=== PATIENT | male | born 1990 | race Two or more races ===

== ENCOUNTER 2017-03-11 10:32 | Inpatient (IN) | payer OTHER ==
[2017-03-11 11:30] VITALS: BMI 25.0
--- NOTE | 2017-03-11 14:06 | HP ---
CIWA Score - CIWA Score Nausea/Vomitin-Int. Nausea w/Dry Heave Muscle Tremors: 4-Moderate,w/Arms Extend Anxiety: 4-Mod. Anxious/Guarded Agitation: 3 Paroxysmal Sweats: 1-Minimal Palms Moist Orientation: 0-Oriented Tacttile Disturbances: 2-Mild Itch/Numbness/Burn Auditory Disturbances: 0-None Visual Disturbances: 0-None Headache: 1-Very Mild CIWA-Ar Total Score: 19 Admission ROS BHS - HPI Chief Complaint: DETOX TX FOR ALCOHOL DEPENDENCE Allergies/Adverse Reactions: Allergies Allergy/AdvReac Type Severity Reaction Status Date / Time No Known Allergies Allergy Verified 03/11/17 11:56 History of Present Illness: 27 Y/O H/M WITH A HX OF ALCOHOL, COCAINE, PCP AND HEROIN DEPENDENCE SEEKING DETOX TX. TOXICOLOGY NEGATIVE FOR OPIOIDS AND PCP. Exam Limitations: No Limitations - Ebola screening Have you traveled outside of the country in the last 21 days: No Have you had contact with anyone from an Ebola affected area: No Have you been sick,other than usual withdrawal symptoms: No Do you have a fever: No - Review of Systems Constitutional: Chills, Night Sweats EENT: reports: Tearing, Nose Congestion, Dental Problems Respiratory: reports: No Symptoms reported Cardiac: reports: No Symptoms Reported GI: reports: Constipated, Diarrhea : reports: No Symptoms Reported Musculoskeletal: reports: Muscle Pain ("WHEN I SHOOT UP I GET MUSCLE CRAMPS".) Integumentary: reports: No Symptoms Reported Neuro: reports: Headache, Tremors, Unsteady Gait Endocrine: reports: No Symptoms Reported Hematology: reports: No Symptoms Reported Psychiatric: reports: Orientated x3, Anxious, Depressed (HX SCHIZOAFFECTIVE DISORDER. ON MED.) Other Systems: Reviewed and Negative Patient History - Patient Medical History Hx Anemia: No Hx Asthma: No Hx Chronic Obstructive Pulmonary Disease (COPD): No Hx Cardiac Disorders: No Hx Hypertension: No Hx Hypercholesterolemia: No HX Cerebrovascular Accident: No Hx Seizures: No Hx Diabetes: No Hx Gastrointestinal Disorders: No Hx Genitourinary Disorders: No Hx Sexually Transmitted Disorders: No Hx Renal Disease (ESRD): No Hx Thyroid Disease: No Hx Human Immunodeficiency Virus (HIV): Yes (SINCE 2011; NONCOMPLIANT WITH MEDS; "MISSED FEW DAYS".) Hx Hepatitis C: Yes Hx Depression: Yes Hx Suicide Attempt: No (DENIES) Hx Schizophrenia: No - Patient Surgical History Past Surgical History: No Hx Neurologic Surgery: No Hx Cataract Extraction: No Hx Cardiac Surgery: No Hx Lung Surgery: No Hx Breast Surgery: No Hx Breast Biopsy: No Hx Abdominal Surgery: No Hx Appendectomy: No Hx Cholecystectomy: No Hx Genitourinary Surgery: No Hx Orthopedic Surgery: No Anesthesia Reaction: No - PPD History Previous Implant?: Yes Documented Results: Negative w/o proof Implanted On Prior [facility] Admission?: No PPD to be Administered?: Yes - Reproductive History Patient is a Female of Child Bearing Age (11 -55 yrs old): No (MALE) Patient : (N/A) - Smoking Cessation Smoking history: Current every day smoker Have you smoked in the past 12 months: Yes Aproximately how many cigarettes per day: 20 Hx Chewing Tobacco Use: No Initiated information on smoking cessation: Yes 'Breaking Loose' booklet given: 03/11/17 - Substance & Tx. History Hx Alcohol Use: Yes (BEER/VODKA) Hx Substance Use: Yes (CRACK/COCIANE/CRYSTAL METH) Substance Use Type: Alcohol, Cocaine Hx Substance Use Treatment: Yes (DON'T REMEMBER NAME OF LAST TX.) - Substances Abused Alcohol Route: Oral Frequency: Daily Amount used: 4-5 24 oz beers Age of first use: 18 Date of Last Use: 03/10/17 Crack Route: Smoking Frequency: Daily Amount used: $40 Age of first use: 20 Date of Last Use: 03/10/17 crystal meth Route: Smoking Frequency: 1-2 times per week Amount used: $800 Age of first use: 22 Date of Last Use: 03/06/17 Family Disease History - Family Disease History Family History: Unable to Obtain ("[facility]") Admission Physical Exam BHS - Vital Signs Vital Signs: Vital Signs - 24 hr 03/11/17 11:18 Temperature 97.3 F L Pulse Rate 72 Respiratory 19 Rate Blood Pressure 125/74 - Physical General Appearance: Yes: Moderate Distress, Irritable, Anxious HEENTM: Yes: EOMI, Normocephalic, BENJAMÍN, Pharynx Normal Respiratory: Yes: Chest Non-Tender, Lungs Clear, Normal Breath Sounds, No Respiratory Distress Neck: Yes: No masses,lesions,Nodules, Supple, Trachea in good position Breast: Yes: Breast Exam Deferred Cardiology: Yes: Regular Rhythm, Regular Rate, S1, S2 Abdominal: Yes: Normal Bowel Sounds, Non Tender, Soft Genitourinary: Yes: Other (N/C) Back: Yes: Other (GENERALIZED POSTULAR RASH,) Musculoskeletal: Yes: full range of Motion, Gait Steady Extremities: Yes: Normal Range of Motion, Non-Tender Neurological: Yes: flatwork finisher II-XII NML intact, Fully Oriented, Alert, Motor Strength 5/5 Integumentary: Yes: Dry, Warm, Rash (POSTULAR RASH,GENERALIZED ON BACK.), Track Briones (IVD INJ. SITES ON FOREARMS, NO REDNESS OR SWELLING.) Lymphatic: Yes: Within Normal Limits - Diagnostic (1) Alcohol dependence with uncomplicated withdrawal Current Visit: Yes Status: Acute (2) Cocaine dependence, uncomplicated Current Visit: Yes Status: Acute (3) Rash and nonspecific skin eruption Current Visit: Yes Status: Acute Comment: GENERALIZED ON BACK ONLY. (4) HIV (human immunodeficiency virus infection) Current Visit: Yes Status: Chronic (5) History of hepatitis C Current Visit: Yes Status: Chronic Cleared for Admission [facility] - Detox or Rehab [facility] Level of Care: Medically Managed Detox Regimen/Protocol: Librium [facility] Breath Alcohol Content Breath Alcohol Content: 0 Urine Drug Screen - Results Drug Screen Negative: No Urine Drug Screen Results: HORTENCIA-Cocaine, BZO-Benzodiazepines
[2017-03-11] MEDS ORDERED: LOPERAMIDE HCL 2 MG CAPSULE PO PRN (14:26)
[2017-03-11] MEDS ORDERED: ACETAMINOPHEN 325 MG TABLET (FP) PO PRN (14:26)
[2017-03-11] MEDS ORDERED: P-EPHED 60MG/TRIPROLIDI 2.5MG TABLET PO PRN (14:26)
[2017-03-11] MEDS ORDERED: guaiFENesin/D-METHORPHAN HB 10 ML UNIT-DOSE CUPS PO PRN (14:26)
[2017-03-11] MEDS ORDERED: chlordiazePOXIDE HCL 25 MG CAPSULE PO PRN (14:26)
[2017-03-11] MEDS ORDERED: MENTHOL/PHENOL 1 EACH UD MM PRN (14:26)
[2017-03-11] MEDS ORDERED: IBUPROFEN 400 MG TABLET (FP) PO PRN (14:26)
[2017-03-11] MEDS ORDERED: MAG HYDROX/AL HYDROX/SIMETH 30 ML UNIT-DOSE CUP PO PRN (14:26)
[2017-03-11] MEDS ORDERED: NICOTINE POLACRILEX 4 MG GUM BUC PRN (14:26)
[2017-03-11] MEDS ORDERED: hydrOXYzine PAMOATE 25 MG CAPSULE (FP) PO PRN (14:26)
[2017-03-11] MEDS ORDERED: MAGNESIUM CITRATE 300 ML BOTTLE PO PRN (14:26)
[2017-03-11] MEDS ORDERED: MAGNESIUM HYDROX 2400MG/30ML ORAL SUSPENSION 30 ML CUP PO PRN (14:26)
[2017-03-11] MEDS ORDERED: EMTRICITABINE 200MG/TENOFOVIR 300MG PO SCH (15:22)
[2017-03-11] MEDS: chlordiazePOXIDE HCL 25 MG CAPSULE PO ONE ×2 (15:31→15:32)
[2017-03-11] MEDS: NICOTINE 21 MG/24 HOURS TOPICAL PATCH TD SCH (15:31)
[2017-03-11] MEDS: DARUNAVIR ETHANOLATE 800 MG TAB PO SCH (15:32)
--- NOTE | 2017-03-11 15:44 | CONSULT ---
[facility] Psychiatric Consult - Data Date of interview: 03/11/17 Admission source: [facility] Identifying data: First admission to [facility] for this 27 y/o male seeking detox treatment [address] for alcohol,cocaine (crack),heroin, methamphetamine and phencyclidine dependence.Patient is single without children, homeless (HAS[facility]),unemployed and supported on SSI benefits. Substance Abuse History: Discussed with patient in this interview. Smoking Cessation. Smoking history: Current every day smoker. Have you smoked in the past 12 months: Yes. Aproximately how many cigarettes per day: 20. Hx Chewing Tobacco Use: No. Initiated information on smoking cessation: Yes. 'Breaking Loose' booklet given: 03/11/17. - Substance & Tx. History. Hx Alcohol Use: Yes (BEER/VODKA). Hx Substance Use: Yes (CRACK/COCIANE/CRYSTAL METH). Substance Use Type: Alcohol, Cocaine. Hx Substance Use Treatment: Yes (DON'T REMEMBER NAME OF LAST TX.). - Substances Abused. Alcohol. Route: Oral. Frequency: Daily. Amount used: 4-5 24 oz beers. Age of first use: 18. Date of Last Use: 03/10/17. Crack. Route: Smoking. Frequency: Daily. Amount used: $40. Age of first use: 20. Date of Last Use: 03/10/17. crystal meth. Route: Smoking. Frequency: 1-2 times per week. Amount used: $800. Age of first use: 22. Date of Last Use: 03/06/17 Medical History: HIV infection since 2011 (on ART medications) and hepatitis C. Psychiatric History: Patient appears somewhat timid and guarded.He admits to " a few " psychiatric hospitalizations.Diagnosed with Schizoaffective Disorder.Mr Morales gets his outpatient psychiatric services at the [facility] in [facility].Prescribed zyprexa 5 mg/day.Patient states that he is adherent to his medications (psychiatric + antiretroviral).No reported history of suicide attempts. Physical/Sexual Abuse/Trauma History: Patient declines to discuss this domain. Additional Comment: Urine Drug Screen Results: HORTENCIA-Cocaine, BZO- Benzodiazepines.Noted. Mental Status Exam - Mental Status Exam Alert and Oriented to: Time, Place, Person Cognitive Function: Good Patient Appearance: Well Groomed Mood: Nervous, Anxious Affect: Mood Congruent Patient Behavior: Fatigued, Appropriate, Cooperative Speech Pattern: Clear Voice Loudness: Normal Thought Process: Goal Oriented Thought Disorder: Not Present Hallucinations: Denies Suicidal Ideation: Denies Homicidal Ideation: Denies Insight/Judgement: Poor Sleep: Well (as per self-report) Appetite: Good Muscle strength/Tone: Normal (no complaint of weakness or rigidity) Gait/Station: Normal Psychiatric Findings - Problem List ([place] 1, 2,3) (1) Schizoaffective disorder Current Visit: Yes Status: Acute (2) Alcohol dependence with uncomplicated withdrawal Current Visit: Yes Status: Acute (3) Cocaine dependence, uncomplicated Current Visit: Yes Status: Acute (4) Methamphetamine dependence Current Visit: Yes Status: Acute (5) Nicotine dependence Current Visit: Yes Status: Acute (6) HIV (human immunodeficiency virus infection) Current Visit: Yes Status: Chronic (7) History of hepatitis C Current Visit: Yes Status: Chronic - Initial Treatment Plan Initial Treatment Plan: Psychoeducation.Detoxification.Medication : zyprexa 5 mg po daily,Sied effects/benefits discussed with patient.He is made aware of potential for metabolic syndrome.Mr Morales agrees to follow this careplan.Observation.
[2017-03-11 17:01] LABS: MCH 27.9 pg (25.7-33.7); MCHC 32.6 g/dl (32.0-35.9); MEAN CELL VOLUME 85.6 fl (80-96); MEAN PLT VOLUME 8.9 fl (7.5-11.1); PLATELET COUNT 213 K/MM3 (134-434); RDW 15.4 % (11.9-15.9); WHITE BLOOD COUNT 5.1 K/mm3 (4.0-10.0)
[2017-03-11 17:11] LABS: URINE APPEARANCE CLEAR; URINE BILIRUBIN NEGATIVE (NEGATIVE); URINE BLOOD NEGATIVE (NEGATIVE); URINE COLOR YELLOW; URINE GLUCOSE (UA) NEGATIVE (NEGATIVE); URINE KETONE NEGATIVE (NEGATIVE); URINE LEUK ESTERASE NEGATIVE (NEGATIVE); URINE NITRITE NEGATIVE (NEGATIVE); URINE PROTEIN NEGATIVE (NEGATIVE); URINE UROBILINOGEN NEGATIVE mg/dL (0.2-1.0)
[2017-03-11] MEDS: BENZOYL PEROXIDE 5% 60 GM GEL..GRAM. TP SCH (17:17)
[2017-03-11] MEDS: EMTRICITABINE 200MG/TENOFOVIR 300MG PO SCH (17:18)
[2017-03-11] MEDS: chlordiazePOXIDE HCL 25 MG CAPSULE PO SCH ×2 (17:18→22:38)
[2017-03-11 17:23] LABS: ALBUMIN 3.6 g/dl (3.4-5.0); ANION GAP 9 (8-16); CALCIUM 9.1 mg/dL (8.5-10.1); CO2 26 mmol/L (21-32); CREATININE 0.8 mg/dL (0.7-1.3); GLUCOSE,RANDOM 94 mg/dL (74-106); SGOT/AST 56 U/L (15-37); SGPT/ALT 92 U/L (12-78)
[2017-03-11 17:25] LABS: ALK PHOS 58 U/L (45-117); BILIRUBIN,TOTAL 0.6 mg/dL (0.2-1.0); TOT PROT 7.6 g/dl (6.4-8.2)
[2017-03-11] MEDS: THIAMINE HCL 100 MG TABLET (FP) PO SCH (22:37)
[2017-03-12] MEDS: chlordiazePOXIDE HCL 25 MG CAPSULE PO SCH ×4 (06:30→22:57)
[2017-03-12] MEDS ORDERED: RITONAVIR 100 MG TABLET PO SCH (08:00)
[2017-03-12] MEDS: DARUNAVIR ETHANOLATE 800 MG TAB PO SCH (08:25)
[2017-03-12] MEDS: EMTRICITABINE 200MG/TENOFOVIR 300MG PO SCH (08:25)
[2017-03-12] MEDS: RITONAVIR 100 MG TABLET PO SCH (08:26)
[2017-03-12] MEDS: BENZOYL PEROXIDE 5% 60 GM GEL..GRAM. TP SCH (10:37)
[2017-03-12] MEDS: OLANZapine 5 MG TABLET PO SCH (10:38)
[2017-03-12] MEDS: PRENATAL VITAMINS W/ FOLIC ACID TABLET (FP) PO SCH (10:38)
[2017-03-12] MEDS: NICOTINE 21 MG/24 HOURS TOPICAL PATCH TD SCH (10:40)
--- NOTE | 2017-03-12 13:30 | EKG ---
Test Reason : Blood Pressure : / mmHG Vent. Rate : 072 BPM Atrial Rate : 072 BPM P-R Int : 166 ms QRS Dur : 094 ms QT Int : 370 ms P-R-T Axes : 051 039 017 degrees QTc Int : 405 ms NORMAL SINUS RHYTHM NORMAL ECG NO PREVIOUS ECGS AVAILABLE Confirmed by IFEOMA AREVALO MD ([id number]) on 03/12/2017 1:29:32 PM Referred By: Confirmed By:IFEOMA AREVALO MD
--- NOTE | 2017-03-12 14:07 | PN ---
[facility] CIWA - CIWA Score Nausea/Vomitin-No Nausea/No Vomiting Muscle Tremors: 4-Moderate,w/Arms Extend Anxiety: 3 Agitation: 2 Paroxysmal Sweats: 3 Orientation: 2-Disoriented Date<2 days Tacttile Disturbances: 3-Moderate Itch/Numb/Burn Auditory Disturbances: 0-None Visual Disturbances: 0-None Headache: 0-None Present CIWA-Ar Total Score: 17 BHS Progress Note (SOAP) Subjective: Tremors, Anxious, Fatigue, Sweating, Interrupted sleep. Objective: PT. A & O X 2 (DISORIENTED ABOUT DAY / DATE). NO ACUTE DISTRESS. 03/12/17 14:03 Vital Signs Temperature 97.6 F 03/12/17 10:27 Pulse Rate 85 03/12/17 10:27 Respiratory Rate 18 03/12/17 10:27 Blood Pressure 122/72 03/12/17 10:27 O2 Sat by Pulse Oximetry (%) Laboratory Tests 03/11/17 03/11/17 03/11/17 14:00 14:00 14:00 WBC 5.1 RBC 4.70 Hgb 13.1 Hct 40.2 MCV 85.6 MCH 27.9 MCHC 32.6 RDW 15.4 Plt Count 213 MPV 8.9 Sodium 142 Potassium 3.9 Chloride 107 Carbon Dioxide 26 Anion Gap 9 BUN 14 Creatinine 0.8 Creat Clearance w eGFR > 60 Random Glucose 94 Calcium 9.1 Total Bilirubin 0.6 AST 56 H ALT 92 H Alkaline Phosphatase 58 Total Protein 7.6 Albumin 3.6 Urine Color Urine Appearance Urine pH Ur Specific [place] Urine Protein Urine Glucose (UA) Urine Ketones Urine Blood Urine Nitrite Urine Bilirubin Urine Urobilinogen RPR Titer Nonreactive 03/11/17 15:00 WBC RBC Hgb Hct MCV MCH MCHC RDW Plt Count MPV Sodium Potassium Chloride Carbon Dioxide Anion Gap BUN Creatinine Creat Clearance w eGFR Random Glucose Calcium Total Bilirubin AST ALT Alkaline Phosphatase Total Protein Albumin Urine Color Yellow Urine Appearance Clear Urine pH 5.0 Ur Specific [place] >= 1.030 H Urine Protein Negative Urine Glucose (UA) Negative Urine Ketones Negative Urine Blood Negative Urine Nitrite Negative Urine Bilirubin Negative Urine Urobilinogen Negative RPR Titer LABS NOTED. Assessment: 03/12/17 14:04 WITHDRAWAL SYMPTOMS. Plan: CONTINUE DETOX. REPEAT AST, ALT ON 03/14/2017 FOR ELEVATED ADMISSION VALUES.
[2017-03-12] MEDS: THIAMINE HCL 100 MG TABLET (FP) PO SCH (22:57)
[2017-03-12] MEDS: diphenhydrAMINE HCL 50 MG CAPSULE PO PRN (22:57)
[2017-03-13] MEDS: chlordiazePOXIDE HCL 25 MG CAPSULE PO SCH ×2 (05:55→10:59)
[2017-03-13] MEDS: EMTRICITABINE 200MG/TENOFOVIR 300MG PO SCH (07:34)
[2017-03-13] MEDS: RITONAVIR 100 MG TABLET PO SCH (07:34)
[2017-03-13] MEDS: DARUNAVIR ETHANOLATE 800 MG TAB PO SCH (07:34)
[2017-03-13] MEDS: OLANZapine 5 MG TABLET PO SCH (10:58)
[2017-03-13] MEDS: PRENATAL VITAMINS W/ FOLIC ACID TABLET (FP) PO SCH (10:58)
[2017-03-13] MEDS: BENZOYL PEROXIDE 5% 60 GM GEL..GRAM. TP SCH (10:59)
[2017-03-13] MEDS: NICOTINE 21 MG/24 HOURS TOPICAL PATCH TD SCH (10:59)
--- NOTE | 2017-03-13 12:10 | PN ---
[facility] CIWA - CIWA Score Nausea/Vomitin-No Nausea/No Vomiting Muscle Tremors: 3 Anxiety: 5 Agitation: 0-Normal Activity Paroxysmal Sweats: 3 Orientation: 2-Disoriented Date<2 days Tacttile Disturbances: 2-Mild Itch/Numbness/Burn Auditory Disturbances: 0-None Visual Disturbances: 0-None Headache: 0-None Present CIWA-Ar Total Score: 15 BHS Progress Note (SOAP) Subjective: Tremors, Anxious, Sweating, Tremors. Objective: PT. A & O X 2 (DISORIENTED ABOUT DAY / DATE). PT. OBSERVED AMBULATING ON UNIT. NO ACUTE DISTRESS. 03/13/17 12:08 Vital Signs Temperature 97.0 F L 03/13/17 11:26 Pulse Rate 93 H 03/13/17 11:26 Respiratory Rate 18 03/13/17 11:26 Blood Pressure 122/71 03/13/17 11:26 O2 Sat by Pulse Oximetry (%) Laboratory Tests 03/11/17 03/11/17 03/11/17 14:00 14:00 14:00 WBC 5.1 RBC 4.70 Hgb 13.1 Hct 40.2 MCV 85.6 MCH 27.9 MCHC 32.6 RDW 15.4 Plt Count 213 MPV 8.9 Sodium 142 Potassium 3.9 Chloride 107 Carbon Dioxide 26 Anion Gap 9 BUN 14 Creatinine 0.8 Creat Clearance w eGFR > 60 Random Glucose 94 Calcium 9.1 Total Bilirubin 0.6 AST 56 H ALT 92 H Alkaline Phosphatase 58 Total Protein 7.6 Albumin 3.6 Urine Color Urine Appearance Urine pH Ur Specific [place] Urine Protein Urine Glucose (UA) Urine Ketones Urine Blood Urine Nitrite Urine Bilirubin Urine Urobilinogen RPR Titer Nonreactive 03/11/17 15:00 WBC RBC Hgb Hct MCV MCH MCHC RDW Plt Count MPV Sodium Potassium Chloride Carbon Dioxide Anion Gap BUN Creatinine Creat Clearance w eGFR Random Glucose Calcium Total Bilirubin AST ALT Alkaline Phosphatase Total Protein Albumin Urine Color Yellow Urine Appearance Clear Urine pH 5.0 Ur Specific [place] >= 1.030 H Urine Protein Negative Urine Glucose (UA) Negative Urine Ketones Negative Urine Blood Negative Urine Nitrite Negative Urine Bilirubin Negative Urine Urobilinogen Negative RPR Titer LABS NOTED. Assessment: 03/13/17 12:09 WITHDRAWAL SYMPTOMS. Plan: CONTINUE DETOX.
[2017-03-13] MEDS: chlordiazePOXIDE 5 MG CAPSULE PO SCH ×2 (17:12→22:41)
[2017-03-13] MEDS: diphenhydrAMINE HCL 50 MG CAPSULE PO PRN (22:41)
[2017-03-13] MEDS: THIAMINE HCL 100 MG TABLET (FP) PO SCH (22:41)
[2017-03-14] MEDS: chlordiazePOXIDE 5 MG CAPSULE PO SCH ×2 (06:21→11:08)
[2017-03-14] MEDS: RITONAVIR 100 MG TABLET PO SCH (10:28)
[2017-03-14] MEDS: DARUNAVIR ETHANOLATE 800 MG TAB PO SCH (10:29)
[2017-03-14] MEDS: EMTRICITABINE 200MG/TENOFOVIR 300MG PO SCH (10:29)
[2017-03-14 10:47] LABS: SGOT/AST 53 U/L (15-37); SGPT/ALT 96 U/L (12-78)
[2017-03-14] MEDS: NICOTINE 21 MG/24 HOURS TOPICAL PATCH TD SCH (11:08)
[2017-03-14] MEDS: OLANZapine 5 MG TABLET PO SCH (11:08)
[2017-03-14] MEDS: BENZOYL PEROXIDE 5% 60 GM GEL..GRAM. TP SCH (11:08)
[2017-03-14] MEDS: PRENATAL VITAMINS W/ FOLIC ACID TABLET (FP) PO SCH (11:08)
[2017-03-14] MEDS: chlordiazePOXIDE HCL 10 MG CAPSULE PO SCH ×2 (17:44→22:45)
--- NOTE | 2017-03-14 19:53 | PN ---
BHS Progress Note (SOAP) Subjective: Sweating, Anxious. Objective: PT. A & O X 3, OBSERVED AMBULATING ON UNIT. NO ACUTE DISTRESS. 03/14/17 19:53 Vital Signs Temperature 97.2 F L 03/14/17 18:13 Pulse Rate 87 03/14/17 18:13 Respiratory Rate 18 03/14/17 18:13 Blood Pressure 106/66 03/14/17 18:13 O2 Sat by Pulse Oximetry (%) Laboratory Tests 03/11/17 03/11/17 03/11/17 14:00 14:00 14:00 WBC 5.1 RBC 4.70 Hgb 13.1 Hct 40.2 MCV 85.6 MCH 27.9 MCHC 32.6 RDW 15.4 Plt Count 213 MPV 8.9 Sodium 142 Potassium 3.9 Chloride 107 Carbon Dioxide 26 Anion Gap 9 BUN 14 Creatinine 0.8 Creat Clearance w eGFR > 60 Random Glucose 94 Calcium 9.1 Total Bilirubin 0.6 AST 56 H ALT 92 H Alkaline Phosphatase 58 Total Protein 7.6 Albumin 3.6 Urine Color Urine Appearance Urine pH Ur Specific [place] Urine Protein Urine Glucose (UA) Urine Ketones Urine Blood Urine Nitrite Urine Bilirubin Urine Urobilinogen RPR Titer Nonreactive 03/11/17 03/14/17 15:00 08:00 WBC RBC Hgb Hct MCV MCH MCHC RDW Plt Count MPV Sodium Potassium Chloride Carbon Dioxide Anion Gap BUN Creatinine Creat Clearance w eGFR Random Glucose Calcium Total Bilirubin AST 53 H ALT 96 H Alkaline Phosphatase Total Protein Albumin Urine Color Yellow Urine Appearance Clear Urine pH 5.0 Ur Specific [place] >= 1.030 H Urine Protein Negative Urine Glucose (UA) Negative Urine Ketones Negative Urine Blood Negative Urine Nitrite Negative Urine Bilirubin Negative Urine Urobilinogen Negative RPR Titer LABS NOTED. Assessment: 03/14/17 19:54 WITHDRAWAL SYMPTOMS. Plan: CONTINUE DETOX. INCREASE DAILY PO FLUID INTAKE.
[2017-03-14] MEDS: THIAMINE HCL 100 MG TABLET (FP) PO SCH (22:45)
[2017-03-15] MEDS: diphenhydrAMINE HCL 50 MG CAPSULE PO PRN (01:18)
[2017-03-15] MEDS: chlordiazePOXIDE HCL 10 MG CAPSULE PO SCH ×2 (06:08→10:55)
[2017-03-15] MEDS: EMTRICITABINE 200MG/TENOFOVIR 300MG PO SCH (09:25)
[2017-03-15] MEDS: RITONAVIR 100 MG TABLET PO SCH (09:25)
[2017-03-15] MEDS: DARUNAVIR ETHANOLATE 800 MG TAB PO SCH (09:25)
[2017-03-15] MEDS: PRENATAL VITAMINS W/ FOLIC ACID TABLET (FP) PO SCH (09:26)
[2017-03-15] MEDS: NICOTINE 21 MG/24 HOURS TOPICAL PATCH TD SCH (09:26)
[2017-03-15] MEDS: BENZOYL PEROXIDE 5% 60 GM GEL..GRAM. TP SCH (09:26)
[2017-03-15] MEDS: OLANZapine 5 MG TABLET PO SCH (09:27)
[2017-03-15 09:31] VITALS: BP 136/77; PULSE 82; TEMP 96.3
--- NOTE | 2017-03-15 15:43 | DS ---
[facility] Detox Discharge Summary Admission Date: 03/11/17 Discharge Date: 03/15/17 - History Present History: Alcohol Dependence, Cocaine Dependence Pertinent Past History: HIV Hepatitis C - Physical Exam Results Vital Signs: Vital Signs Temperature 96.3 F L 03/15/17 09:30 Pulse Rate 82 03/15/17 09:30 Respiratory Rate 16 03/15/17 09:30 Blood Pressure 136/77 03/15/17 09:30 O2 Sat by Pulse Oximetry (%) Pertinent Admission Physical Exam Findings: Withdrawal symptoms Laboratory Tests 03/11/17 03/11/17 03/11/17 14:00 14:00 14:00 WBC 5.1 RBC 4.70 Hgb 13.1 Hct 40.2 MCV 85.6 MCH 27.9 MCHC 32.6 RDW 15.4 Plt Count 213 MPV 8.9 Sodium 142 Potassium 3.9 Chloride 107 Carbon Dioxide 26 Anion Gap 9 BUN 14 Creatinine 0.8 Creat Clearance w eGFR > 60 Random Glucose 94 Calcium 9.1 Total Bilirubin 0.6 AST 56 H ALT 92 H Alkaline Phosphatase 58 Total Protein 7.6 Albumin 3.6 Urine Color Urine Appearance Urine pH Ur Specific [place] Urine Protein Urine Glucose (UA) Urine Ketones Urine Blood Urine Nitrite Urine Bilirubin Urine Urobilinogen RPR Titer Nonreactive 03/11/17 03/14/17 15:00 08:00 WBC RBC Hgb Hct MCV MCH MCHC RDW Plt Count MPV Sodium Potassium Chloride Carbon Dioxide Anion Gap BUN Creatinine Creat Clearance w eGFR Random Glucose Calcium Total Bilirubin AST 53 H ALT 96 H Alkaline Phosphatase Total Protein Albumin Urine Color Yellow Urine Appearance Clear Urine pH 5.0 Ur Specific [place] >= 1.030 H Urine Protein Negative Urine Glucose (UA) Negative Urine Ketones Negative Urine Blood Negative Urine Nitrite Negative Urine Bilirubin Negative Urine Urobilinogen Negative RPR Titer Labs noted - Treatment Hospital Course: Detox Protocol Followed, Detoxed Safely, Responded well, Discharged Condition Good, Rehab Referral Accepted - Medication Discharge Medications: Ambulatory Orders Darunavir Ethanolate [Prezista -] 800 mg PO DAILY 03/11/17 Emtricitabine/Tenofovir [Truvada] 1 tab PO DAILY 03/11/17 Olanzapine [Zyprexa -] 5 mg PO DAILY 03/11/17 Olanzapine [Zyprexa] 5 mg PO DAILY #30 tablet 03/11/17 Ritonavir [Norvir -] 100 mg PO DAILY 03/11/17 - Diagnosis (1) Alcohol dependence with uncomplicated withdrawal Status: Acute (2) Cocaine dependence, uncomplicated Status: Chronic (3) Nicotine dependence Status: Chronic (4) HIV (human immunodeficiency virus infection) Status: Chronic (5) Hepatitis C virus infection without hepatic coma Status: Chronic (6) Depression Status: Chronic - AMA Did Patient Leave Against Medical Advice: No
== END 2017-03-15 11:40 | disposition other institution (70) | DRG 774 ==
LOC: YASAS 10:32 → Y3N 13:10
PROVIDERS: ADMIT Internal Medicine; ATTEND Internal Medicine
PROC: HZ2ZZZZ Detoxification Services for Substance Abuse Treatment (ICD-10-PCS; principal; 2017-03-11)
DX: F10.230 Alcohol dependence with withdrawal, uncomplicated (principal); F15.20 Other stimulant dependence, uncomplicated; F14.20 Cocaine dependence, uncomplicated; F17.210 Nicotine dependence, cigarettes, uncomplicated; F25.9 Schizoaffective disorder, unspecified; F32.9 Major depressive disorder, single episode, unspecified; B18.2 Chronic viral hepatitis C; Z21 Asymptomatic human immunodeficiency virus [HIV] infection status
CPT/HCPCS: 36415; 80053; 81003; 84450; 84460; 85027; 86593; 93005; 93010

== ENCOUNTER 2021-12-31 22:58 | Inpatient (IN) | payer OTHER ==
[2022-01-01 03:33] VITALS: BMI 26.3
[2022-01-01] MEDS ORDERED: ONDANSETRON *ODT* 4 MG TABLET SL PRN (03:55)
[2022-01-01] MEDS ORDERED: ACETAMINOPHEN 325 MG TABLET (FP) PO PRN ×2 (03:55)
[2022-01-01] MEDS ORDERED: MAGNESIUM HYDROX 2400MG/30ML ORAL SUSPENSION 30 ML CUP PO PRN (03:55)
[2022-01-01] MEDS ORDERED: LOPERAMIDE HCL 2 MG CAPSULE PO PRN (03:55)
[2022-01-01] MEDS ORDERED: NICOTINE POLACRILEX 2 MG GUM BUC PRN (03:55)
[2022-01-01] MEDS ORDERED: DICYCLOMINE HCL 10 MG CAPSULE PO PRN (03:55)
[2022-01-01] MEDS ORDERED: MAGNESIUM CITRATE 300 ML BOTTLE PO PRN (03:55)
[2022-01-01] MEDS ORDERED: IBUPROFEN 600 MG TABLET (FP) PO PRN (03:55)
[2022-01-01] MEDS ORDERED: METHOCARBAMOL 500 MG TABLET PO PRN (03:55)
[2022-01-01] MEDS ORDERED: MAG HYDROX/AL HYDROX/SIMETH 30 ML UNIT-DOSE CUP PO PRN (03:55)
[2022-01-01] MEDS ORDERED: BENZOCAINE/MENTHOL (CHLORASEPTIC ) LOZENGE MM PRN (03:55)
[2022-01-01] MEDS ORDERED: BISMUTH SUBSALICYLATE 524 MG/30 ML PO PRN (03:55)
[2022-01-01] MEDS ORDERED: IBUPROFEN 400 MG TABLET (FP) PO PRN (03:55)
[2022-01-01] MEDS: PRENATAL VITAMINS W/ FOLIC ACID TABLET (FP) PO SCH (10:52)
[2022-01-01] MEDS: hydrOXYzine PAMOATE 25 MG CAPSULE (FP) PO PRN ×2 (10:54→22:55)
[2022-01-01] MEDS: NICOTINE 14 MG/24 HOURS TOPICAL PATCH TD SCH (10:55)
[2022-01-01] MEDS: MELATONIN 5 MG TABLETS PO SCH (22:54)
[2022-01-01] MEDS: THIAMINE HCL 100 MG TABLET (FP) PO SCH (22:54)
[2022-01-02] MEDS: NICOTINE 14 MG/24 HOURS TOPICAL PATCH TD SCH (11:27)
[2022-01-02] MEDS: PRENATAL VITAMINS W/ FOLIC ACID TABLET (FP) PO SCH (11:29)
[2022-01-02 14:26] LABS: ALBUMIN 3.2 g/dl (3.4-5.0)
[2022-01-02 14:29] LABS: CREATININE 0.7 mg/dL (0.55-1.3); HEMATOCRIT 41.1 % (35.4-49); HEMOGLOBIN 13.4 GM/dL (11.7-16.9); MCH 27.6 pg (25.7-33.7); MCHC 32.6 g/dl (32.0-35.9); MEAN CELL VOLUME 84.7 fl (80-96); MEAN PLT VOLUME 8.6 fl (7.5-11.1); PLATELET COUNT 219 10^3/uL (134-434); RBC 4.86 M/mm3 (4.00-5.60); WHITE BLOOD COUNT 2.7 K/mm3 (4.0-10.0)
[2022-01-02 14:31] LABS: BILIRUBIN,TOTAL 0.2 mg/dL (0.2-1)
[2022-01-02 14:32] LABS: TOT PROT 6.9 g/dl (6.4-8.2)
[2022-01-02] MEDS ORDERED: PENICILLIN G BENZATHINE 2,400,000 UNIT/4 ML PFS IM ONE (15:14)
[2022-01-02] MEDS: THIAMINE HCL 100 MG TABLET (FP) PO SCH (22:36)
[2022-01-02] MEDS: MELATONIN 5 MG TABLETS PO SCH (22:36)
[2022-01-03] MEDS: NICOTINE 14 MG/24 HOURS TOPICAL PATCH TD SCH (10:28)
[2022-01-03] MEDS: PRENATAL VITAMINS W/ FOLIC ACID TABLET (FP) PO SCH (10:29)
[2022-01-03] MEDS ORDERED: DARUNAVIR ETHANOLATE 800 MG TAB PO SCH (12:00)
[2022-01-03] MEDS ORDERED: RITONAVIR 100 MG TABLET PO SCH (12:00)
[2022-01-03] MEDS ORDERED: EMTRICITABINE 200MG/TENOFOVIR 300MG PO SCH (12:00)
[2022-01-03 12:58] VITALS: BP 142/78; PULSE 84; TEMP 97.3
[2022-01-04] MEDS ORDERED: OLANZapine 5 MG TABLET PO SCH (10:00)
== END 2022-01-03 14:13 | disposition home or self-care (01) | DRG 773 ==
LOC: YASAS 22:58 → Y3N 01-01 04:11
PROVIDERS: ADMIT Allergy & Immunology; ATTEND Allergy & Immunology
PROC: HZ2ZZZZ Detoxification Services for Substance Abuse Treatment (ICD-10-PCS; principal; 2022-01-01)
DX: F10.230 Alcohol dependence with withdrawal, uncomplicated (principal); F11.20 Opioid dependence, uncomplicated; F14.20 Cocaine dependence, uncomplicated; F15.20 Other stimulant dependence, uncomplicated; F12.20 Cannabis dependence, uncomplicated; F17.210 Nicotine dependence, cigarettes, uncomplicated; F25.9 Schizoaffective disorder, unspecified; F32.9 Major depressive disorder, single episode, unspecified; B18.2 Chronic viral hepatitis C; R56.9 Unspecified convulsions; Z86.19 Personal history of other infectious and parasitic diseases; Z56.0 Unemployment, unspecified; Z59.00 Homelessness unspecified
CPT/HCPCS: 36415; 80053; 85027; 86593; 86780; 93005; 93010; C9803-CS; U0003; U0005